=== PATIENT | female | born 2000 | race Caucasian/White ===

== ENCOUNTER 2020-06-02 13:41 | Emergency (ER) | payer MEDICAID, SELFPAY ==
[2020-06-02 13:42] VITALS: BP 136/80; PULSE 107; RESP 16; TEMP 36.5; O2SAT 96; BMI 25.6
--- NOTE | 2020-06-02 13:55 | RAD_ITS ---
STUDY: X-RAY - RIGHT HAND REASON FOR EXAM: Laceration between thumb and index finger, right hand injury. TECHNIQUE: 3 view(s) of the hand. COMPARISON: None. FINDINGS: Normal radiocarpal articulation. Normal distal radioulnar joint. Normal visualized carpal bones. Normal carpal articulations Normal carpometacarpal articulation of the thumb. Normal second through fifth carpometacarpal joints. Normal metacarpi. Normal metacarpophalangeal joint of the thumb. Normal interphalangeal joint of the thumb. Normal proximal and distal phalanges of the thumb. Normal metacarpophalangeal joints of the second through fifth fingers. Normal proximal and distal interphalangeal joints of the second through fifth fingers. Normal phalanges of the second through fifth fingers. The soft tissue structures are unremarkable. There is no radiopaque foreign body. RAD/Hand Min 3 Views IMPRESSION: Normal x-ray examination of the right hand. Electronically Signed: Bryan Alba MD at 14:19 EDT Tel , Service support ,
--- NOTE | 2020-06-02 14:31 | ED.VIS.GEN ---
History of Present Illness Chief Complaint: Laceration Informant: Patient Narrative: Patient is a 19-year-old previously healthy female who presents to the emergency department for laceration to right dorsal hand. This is just above the proximal metacarpal phalangeal joint of the index finger. Bleeding controlled prior to arrival. 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 She denies any loss of range of motion but it does hurt to move the finger. She denies any loss of sensation. She is not on blood thinners. Laceration is 3 cm long. No other injury noted. Past Medical History - Allergies and Home Meds Allergies/Adverse Reactions: Allergies No Known Allergies Allergy (Verified 06/02/20 13:45) Primary Care Physician: NOT,DEFINED [NON-STAFF] - 7 Days for suture removal Prior records reviewed: Yes Past Medical History: None Surgical History: no surgical history Smoking Status: Never smoker Review of Systems All systems negative except as indicated General: Denies: Chills, Fever Cardiovascular: Denies: Chest pain Respiratory: Denies: Dyspnea Gastrointestinal: Denies: Abdominal pain, Nausea, Vomiting Musculoskeletal: Reports: Extremity Pain. Denies: Neck pain, Back pain Skin: Reports: Wounds Neurological: Denies: Weakness, Numbness Hematologic: Denies: Easy bruising, Easy bleeding Physical Exam Vital Signs/Narrative: Vital Signs Temp Pulse Resp BP Pulse Ox 06/02/20 13:42 97.7 F L 107 H 16 136/80 H 96 Inital Vital Signs reviewed: Yes General: Well nourished, Well developed Head: Normocephalic, Atraumatic Eyes: Perrl, EOMI ENT: Moist mucous membranes Neck: Supple, Nontender Cardiovascular: Regular rate, Regular rhythm Respiratory: No distress, CTA bilaterally Abdomen: Nondistended Extremities: - - Full range of motion of all digits and hand. Sensation intact. Brisk capillary refill. Skin: - - Laceration to right dorsal hand, 3 cm, linear. Exposed tendon but no obvious tendon injury. No foreign body appreciated. Neurological: Alert, Oriented x3 Psychological: Normal affect, Normal Mood Diagnostic/Tx/Re-eval X-ray of right hand interpreted by myself. No soft tissue swelling. No fractures appreciated. No dislocations. Normal x-ray of hand. Agree with radiologist interpretation. 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 No obvious tendon injury. X-ray was obtained which did not show any bony destruction. Patient updated on tetanus. Wound was irrigated and anesthetized with lidocaine. Repaired with sutures. The wound was dressed with antibiotic ointment and a nonadherent bandage. She is to monitor for evidence of infection. Sutures will need to be removed in 7 to 10 days. Return precautions are reviewed. She understands and is agreeable this plan. Discharged home in stable condition. All questions answered. Procedures Procedure(s): Laceration repair: Informed consent was obtained before procedure started. The appropriate timeout was taken. The area was prepped and draped in the usual sterile fashion. Local anesthesia was achieved using 6cc of lidocaine 1% without epinephrine. The wound was copiously irrigated. 7 5-0 Ethilon simple interrupted sutures were placed. A dressing was applied to the area and anticipatory guidance, as well as standard post procedure care, was explained. Return precautions are given. The patient tolerated the procedure well without any apparent complications. Follow-up visit set for suture removal and evaluation of laceration. ED Disposition - Plan for ED Patient: Disposition: Home or Assisted Living Diagnosis: Laceration of hand Instructions: ED Laceration: All Closures Referrals: NOT,DEFINED [NON-STAFF] - 7 Days for suture removal
[2020-06-02] MEDS: Lidocaine 1% (20 ml mdv) 20 ML Vial 5 ML INFILT (14:51)
[2020-06-02] MEDS: Diphth,Pertuss(Acell),Tet Vac 0.5 ML Vial IM (15:23)
[2020-06-02 15:30] VITALS: BP 123/64; PULSE 84; RESP 16; O2SAT 100
== END 2020-06-02 15:37 | disposition home or self-care (01) ==
PROVIDERS: Emergency Provider Emergency Medicine
DX: S69.91XA Unspecified injury of right wrist, hand and finger(s), initial encounter (principal); X58.XXXA Exposure to other specified factors, initial encounter
CPT/HCPCS: 12002; 73130; 90715; 96372; 99283